=== PATIENT | male | born 1995 | race Caucasian/White ===

== ENCOUNTER 2023-12-19 18:21 | Observation (INO) ==
--- NOTE | 2023-12-19 18:43 | ED Triage Note ---
Date of Service December 19, 2023 Provider in Triage Author: Mesha Bray History of Present Illness This patient was briefly evaluated while in triage. An abbreviated physical exam was performed. This patient is a 28-year-old Male who presents to the ED for evaluation of abdominal pain. Patient states he has had RLQ pain and nausea which started today around 2 pm when he woke up. 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 Denies vomiting. No BM change, no urinary symptoms. Physical Exam GENERAL: Non-toxic and in no acute distress. HEENT: Pupils equal. No obvious scleral icterus. HEART: Regular rate and rhythm. LUNGS: Clear to auscultation. No accessory muscle use. ABDOMEN: Soft, tenderness to palpation in the right lower quadrant. NEURO: Alert and oriented. No obvious neurological deficits on quick neuro exam. Initial orders for labs and / or imaging were placed and patient was placed in the waiting area until a bed is available. Please see further documentation for the full ED course. MDM / Impression Impression Impression: Acute appendicitis Impression: Acute appendicitis Qualifiers: Acute appendicitis type: with localized peritonitis Appendicitis gangrene presence: unspecified whether gangrene present Appendicitis perforation presence: without perforation Appendicitis abscess presence: without abscess Qualified Code(s): K35.30 - Acute appendicitis with localized peritonitis, without perforation or gangrene
[2023-12-19 19:12] LABS: Basophils # (auto) 0.09 K/uL (0.00-0.20); Basophils % (auto) 0.7 %; Eosinophils # (auto) 0.56 K/uL (0.00-0.50); Eosinophils % (auto) 4.3 %; Hematocrit (blood only) 47.1 % (42.0-52.0); Hemoglobin 16.4 g/dl (14.0-18.0); Immature Granulocytes # (auto) 0.07 K/uL (0.01-0.20); Immature Granulocytes % (auto) 0.5 %; Lymphocytes # (auto) 2.11 K/uL (1.20-3.40); Lymphocytes % (auto) 16.2 %; Mean Corpuscular Hemoglobin 31.2 pg (25.0-34.0); Mean Corpuscular Hgb Conc 34.8 g/dL (32.0-36.0); Mean Corpuscular Volume 89.5 fL (80.0-100.0); Mean Platelet Volume 10.7 fL (9.4-12.4); Monocytes # (auto) 0.93 K/uL (0.11-0.59); Monocytes % (auto) 7.2 %; Neutrophils # (auto) 9.23 K/uL (1.40-6.50); Neutrophils % (auto) 71.1 %; Platelet Count 202 K/uL (130-400); RDW Coefficient of Variation 12.5 % (11.5-14.5); RDW Standard Deviation 40.9 fL (36.4-46.3); Red Blood Count 5.26 M/uL (4.70-6.10); White Blood Count 12.99 K/ul (4.8-10.8)
[2023-12-19 19:23] LABS: BUN Creatinine Ratio 17.8 (10-20); Bilirubin,Total 0.6 mg/dl (0.2-1.0); Calcium 9.9 mg/dl (8.6-10.3); Creatinine Clr Calc Pharmacy 116.7 ml/min; Est GFR (African American) 135.2 ml/min; Est GFR (Non-African American) 116.6 ml/min; Globulin 2.5 gm/dl (2.5-4.0); Potassium 4.2 mmol/L (3.5-5.1); Total Protein 7.5 gm/dl (6.0-8.3)
[2023-12-19] MEDS: OPTIRAY 320 500ml IV ONE (19:39)
[2023-12-19] MEDS: ONDANSETRON INJ 2 MG/ML 2 ML VIAL IV STA (19:49)
--- NOTE | 2023-12-19 20:15 | CT Scan Report ---
Exam(s): CT ABDOMEN + PELVIS With Contrast IV Amt: 81 ML OPTIRAY 320 EXAM: CT Abdomen and Pelvis With Intravenous Contrast CLINICAL HISTORY: Reason for exam: rlq pain. TECHNIQUE: Axial computed tomography images of the abdomen and pelvis with intravenous contrast. CTDI is 15.71 mGy and DLP is 719.49 mGy-cm. Automated exposure control was utilized for the study. A dose lowering technique was utilized adhering to the principles of ALARA. CONTRAST: Patient received 81 ML OPTIRAY 320 of IV contrast COMPARISON: No relevant prior studies available. FINDINGS: Lung bases: Unremarkable. No mass. No consolidation. ABDOMEN: Liver: Unremarkable. No mass. Gallbladder and bile ducts: Unremarkable. No calcified stones. No ductal dilation. Pancreas: Unremarkable. No mass. No ductal dilation. Spleen: Unremarkable. No splenomegaly. Adrenals: Unremarkable. No mass. Kidneys and ureters: Subcentimeter left renal cyst. No follow-up imaging required. No hydronephrosis. Stomach and bowel: Unremarkable. No obstruction. No mucosal thickening. PELVIS: Appendix: Dilated appendix with periappendiceal edema, characteristic of acute appendicitis. There is a small appendicolith. Bladder: Unremarkable. No mass. Reproductive: Unremarkable as visualized. ABDOMEN and PELVIS: Intraperitoneal space: Unremarkable. No free air. No significant fluid collection. Bones/joints: No acute fracture. No dislocation. Soft tissues: Unremarkable. Vasculature: Unremarkable. No abdominal aortic aneurysm. Lymph nodes: Unremarkable. No enlarged lymph nodes. IMPRESSION: Dilated appendix with periappendiceal edema, characteristic of acute appendicitis. There is a small appendicolith. No evidence of abscess or extraluminal air Communications: Call Doctor Appendicitis Electronically signed by: Kaylyn Zee MD 12/19/23 20:14 PM
--- NOTE | 2023-12-19 21:13 | Emergency Department Note ---
ED Provider Note History of Present Illness Chief Complaint: Abdominal Pain Stated Complaint: ABD PAIN,NAUSEA Time Seen by Provider: 12/19/23 18:57 This patient is a 28-year-old Male who presents to the ED for evaluation of abdominal pain. Patient states he has had RLQ pain and nausea which started today around 2 pm when he woke up. 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 Denies vomiting. No BM change, no urinary symptoms. Pain is worse when he is standing up straight or walking. He states it feels better when he is hunched over, in the position. 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 Beliefs That Will Affect Care: None Current Living Situation: Significant Other Feels Safe at Home: Yes Safety Concerns: Feels Safe At This Time Physical Exam Vital Signs Vital Signs - 24 hr 12/19/23 18:41 12/19/23 20:14 12/19/23 20:37 Temperature 36.5 C Temperature Source Temporal Artery Scan Pulse Rate 85 70 63 Pulse Rate [Apical] Pulse Rhythm Regular Pulse Rhythm [Apical] Pulse Strength [Apical] Respiratory Rate 20 14 Respiratory Effort / Characteristics Non-Labored Spontaneous Respiratory Depth Normal Respiratory Pattern Blood Pressure 167/101 H 138/74 Blood Pressure [Right Arm] Blood Pressure Mean 123 95 Blood Pressure Mean [Right Arm] Blood Pressure Position [Right Arm] Pulse Oximetry 97 98 Oxygen Delivery Method Room Air Room Air Sepsis Recent Fever Within 48 Hours No Sepsis New/Unexplained Change in Mental Status No Sepsis Action Taken by Nursing No Action Required 12/19/23 21:07 12/19/23 21:18 Temperature 36.7 C 36.8 C Temperature Source Oral Oral Pulse Rate Pulse Rate [Apical] 75 72 Pulse Rhythm Pulse Rhythm [Apical] Regular Pulse Strength [Apical] Normal Respiratory Rate 14 Respiratory Effort / Characteristics Non-Labored Spontaneous Respiratory Depth Normal Respiratory Pattern Regular Blood Pressure Blood Pressure [Right Arm] 129/71 106/75 Blood Pressure Mean Blood Pressure Mean [Right Arm] 90 85 Blood Pressure Position [Right Arm] Semi-fowlers Pulse Oximetry 98 98 Oxygen Delivery Method Room Air Room Air Sepsis Recent Fever Within 48 Hours Sepsis New/Unexplained Change in Mental Status Sepsis Action Taken by Nursing VITALS: Vitals are noted on the nurse's note and reviewed by myself. GENERAL: This is a 28-year-old male, in no acute distress, well-developed well- nourished. SKIN: The skin was without rashes. EYES: Pupils equal round and reactive to light and accommodation. No scleral icterus. MOUTH: Mucous membranes moist. HEART: Regular rate and rhythm without murmurs gallops or rubs. LUNGS: Clear to auscultation bilaterally without wheezes, rales or rhonchi. ABDOMEN: Positive bowel sounds x 4. Soft, tenderness in the right lower quadrant with guarding. NEURO: Patient was alert and oriented to person place and time. Course Administered Medications Discontinued Medications Bupivacaine HCl (Bupivacaine 0.5 % 5 Mg/1 Ml Mpf 30ml Vial) Confirm Administered Dose 30 ml .ROUTE .STK-MED ONE Stop: 12/19/23 21:17 Last Admin: 12/19/23 23:00 Dose: 30 ml Documented By: AKASH Epinephrine HCl (Epinephrine Inj 1 Mg/Ml Amp) Confirm Administered Dose 1 mg .ROUTE .STK-MED ONE Stop: 12/19/23 21:17 Last Admin: 12/19/23 23:00 Dose: 1 mg Documented By: AKASH Cefoxitin Sodium 2,000 mg/ (Dextrose) 50 mls @ 100 mls/hr IV ONCE ONE; Protocol Stop: 12/19/23 23:30 Last Infusion: 12/20/23 00:33 Dose: Infused Documented By: Admin: 12/19/23 22:20 Dose: 100 mls/hr Documented By: [id number] Ioversol (Optiray 320 500ml) 81 ml IV ONCE ONE Stop: 12/19/23 19:40 Last Admin: 12/19/23 19:39 Dose: 81 ml Documented By: ARNOLD Ondansetron HCl (Ondansetron Inj 2 Mg/Ml 2 Ml Vial) 4 mg IV NOW STA Stop: 12/19/23 18:44 Last Admin: 12/19/23 19:49 Dose: 4 mg Documented By: ROHAN Medical Decision Making Differential Diagnosis Appendicitis, testicular torsion, infections, diverticulitis, UTI, obstruction, mesenteric ischemia, aortic pathology, inflammatory bowel disease, renal colic, PUD, pancreatitis, biliary pathology, hernia, volvulus, constipation, as well as other pathologies. Laboratory Data Attestation: I reviewed the patient's lab results. 12/19/23 18:49 12/19/23 18:49 Lab Results 12/19/23 12/19/23 Range/Units 18:49 21:00 WBC 12.99 H (4.8-10.8) K/ul RBC 5.26 (4.70-6.10) M/uL Hgb 16.4 (14.0-18.0) g/dl Hct 47.1 (42.0-52.0) % MCV 89.5 (80.0-100.0) fL MCH 31.2 (25.0-34.0) pg MCHC 34.8 (32.0-36.0) g/dL RDW Std Deviation 40.9 (36.4-46.3) fL RDW Coeff of Sebastian 12.5 (11.5-14.5) % Plt Count 202 (130-400) K/uL MPV 10.7 (9.4-12.4) fL Immature Gran % (Auto) 0.5 % Neut % (Auto) 71.1 % Lymph % (Auto) 16.2 % King % (Auto) 7.2 % Eos % (Auto) 4.3 % Baso % (Auto) 0.7 % Neut # (Auto) 9.23 H (1.40-6.50) K/uL Lymph # (Auto) 2.11 (1.20-3.40) K/uL King # (Auto) 0.93 H (0.11-0.59) K/uL Eos # (Auto) 0.56 H (0.00-0.50) K/uL Baso # (Auto) 0.09 (0.00-0.20) K/uL Immature Gran # (Auto) 0.07 (0.01-0.20) K/uL Sodium 138 (136-145) mmol/L Potassium 4.2 (3.5-5.1) mmol/L Chloride 104 (98-107) mmol/L Carbon Dioxide 27 (21-32) mmol/L Anion Gap 7 (3-11) BUN 16 (6-23) mg/dl Creatinine 0.90 (0.6-1.4) mg/dl Est Cr Clr Drug Dosing 116.7 ml/min Est GFR ( Amer) 135.2 ml/min Est GFR (Non-Af Amer) 116.6 ml/min BUN/Creatinine Ratio 17.8 (10-20) Glucose 93 (70-99(Fasting)) mg/dl Calcium 9.9 (8.6-10.3) mg/dl Total Bilirubin 0.6 (0.2-1.0) mg/dl AST 21 (13-39) U/L ALT 24 (7-52) U/L Alkaline Phosphatase 86 (34-104) U/L Total Protein 7.5 (6.0-8.3) gm/dl Albumin 5.0 (3.4-5.0) gm/dl Globulin 2.5 (2.5-4.0) gm/dl Albumin/Globulin Ratio 2.0 (0.9-2) Lipase 16 (11-82) U/L Urine Color Yellow Urine Appearance Clear (Clear) Urine pH 7.0 (4.5-7.5) Ur Specific [place] > 1.045 H (1.000-1.030) Urine Protein Negative (Negative) Urine Glucose (UA) Negative (Negative) Urine Ketones Negative (Negative) Urine Blood Negative (Negative) Urine Nitrite Negative (Negative) Urine Bilirubin Negative (Negative) Urine Urobilinogen Negative (Negative) Ur Leukocyte Esterase Negative (Negative) Imaging Data Attestation: I personally reviewed and interpreted this imaging study as follows: Radiologist's Impression: Abdomen/Pelvis CT 12/19/23 18:43 CR Exam(s): CT ABDOMEN + PELVIS With Contrast IV Amt: 81 ML OPTIRAY 320 EXAM: CT Abdomen and Pelvis With Intravenous Contrast CLINICAL HISTORY: Reason for exam: rlq pain. TECHNIQUE: Axial computed tomography images of the abdomen and pelvis with intravenous contrast. CTDI is 15.71 mGy and DLP is 719.49 mGy-cm. Automated exposure control was utilized for the study. A dose lowering technique was utilized adhering to the principles of ALARA. CONTRAST: Patient received 81 ML OPTIRAY 320 of IV contrast COMPARISON: No relevant prior studies available. FINDINGS: Lung bases: Unremarkable. No mass. No consolidation. ABDOMEN: Liver: Unremarkable. No mass. Gallbladder and bile ducts: Unremarkable. No calcified stones. No ductal dilation. Pancreas: Unremarkable. No mass. No ductal dilation. Spleen: Unremarkable. No splenomegaly. Adrenals: Unremarkable. No mass. Kidneys and ureters: Subcentimeter left renal cyst. No follow-up imaging required. No hydronephrosis. Stomach and bowel: Unremarkable. No obstruction. No mucosal thickening. PELVIS: Appendix: Dilated appendix with periappendiceal edema, characteristic of acute appendicitis. There is a small appendicolith. Bladder: Unremarkable. No mass. Reproductive: Unremarkable as visualized. ABDOMEN and PELVIS: Intraperitoneal space: Unremarkable. No free air. No significant fluid collection. Bones/joints: No acute fracture. No dislocation. Soft tissues: Unremarkable. Vasculature: Unremarkable. No abdominal aortic aneurysm. Lymph nodes: Unremarkable. No enlarged lymph nodes. IMPRESSION: Dilated appendix with periappendiceal edema, characteristic of acute appendicitis. There is a small appendicolith. No evidence of abscess or extraluminal air Communications: Call Doctor Appendicitis Electronically signed by: Kaylyn Zee MD 12/19/23 20:14 PM [facility] Narrative This patient is a 28-year-old male who presents to the emergency department for evaluation of right lower quadrant abdominal pain. Labs showed a leukocytosis of 12,000. Labs otherwise unremarkable. CT of the abdomen/pelvis performed and reviewed by radiology which did show appendicitis with no perforation or abscess. General surgery, Dr. Frye was consulted and arrived to evaluate the patient. Patient will be taken for operative management. Patient informed of all findings and agreed with the plan of care. Impression Acute appendicitis Discharge Plan Visit Data Chief Complaint: Abdominal Pain Stated Complaint: ABD PAIN,NAUSEA ED Provider: Brisa Nolasco ED Midlevel Provider: Mesha Bray Discharge Problem: Acute appendicitis Patient Disposition: Admitted As Inpatient Discharge Instructions Interventions: ED Discharge Assessment Last Done: 12/19/23 21:42 Discharge Problem: Acute appendicitis Qualifiers: Acute appendicitis type: with localized peritonitis Appendicitis gangrene presence: unspecified whether gangrene present Appendicitis perforation presence: without perforation Appendicitis abscess presence: without abscess Q ualified Code(s): K35.30 - Acute appendicitis with localized peritonitis, without perforation or gangrene
--- NOTE | 2023-12-19 21:24 | History & Physical Report ---
Date of Service December 19, 2023 Assessment & Plan (1) Acute appendicitis: Plan: 28-year-old gentleman with acute appendicitis. I discussed risks and benefits of a laparoscopic appendectomy with him. All his questions were answered, and he is agreeable to proceed. We will take him to the operating room at the earliest convenience. Consent has been obtained. History of Present Illness Primary Care Provider: Ayanna Wadsworth MD Gentleman presents with a 6-hour history of right lower quadrant abdominal pain, worsening in nature. He has had nausea associated with the pain. He denies vomiting. He had a normal bowel movement this morning. He is having difficulty and pain with urination. He denies fevers or chills. He has never had abdominal surgery in the past. Allergies Allergy/AdvReac Type Severity Reaction Status Date / Time No Known Allergies AdvReac Unknown Verified 12/19/23 21:11 Home Medications Medication Instructions Recorded Confirmed Type No Known Home Medications 12/19/23 12/19/23 History Past Med/Surg History Social History Smoking Status: Never smoker Feels Safe at Home: Yes Review of Systems Review of Systems: All systems reviewed & are unremarkable except as noted in HPI & below Physical Exam Constitutional: WD/WN, vitals as above Eyes: PERRL, conjunctivae normal, anicteric sclerae Neck: trachea midline, no thyromegaly Respiratory: normal respiratory effort; no respiratory distress and no labored breathing Cardiovascular: Rate/Rhythm: regular rate and regular rhythm Gastrointestinal (Abdomen): Inspection/Auscultation: abdomen normal to inspection; abdomen not distended Percussion/Palpation: + abdomen tender ( RLQ) and abdomen soft; no guarding and abdomen not rigid positive Rovsing's sign Skin: no rashes, warm and dry Psychiatric: A+Ox3, euthymic affect Results & Data Results & Data Vital Signs (Past 12 Hours) Vital Signs Temp Pulse Resp BP Pulse Ox O2 Del Method 12/19/23 20:37 63 12/19/23 20:14 70 14 138/74 98 Room Air 12/19/23 18:41 36.5 C 85 20 167/101 H 97 Room Air Laboratory Results 12/19/23 12/19/23 Range/Units 21:00 18:49 WBC 12.99 H (4.8-10.8) K/ul RBC 5.26 (4.70-6.10) M/uL Hgb 16.4 (14.0-18.0) g/dl Hct 47.1 (42.0-52.0) % MCV 89.5 (80.0-100.0) fL MCH 31.2 (25.0-34.0) pg MCHC 34.8 (32.0-36.0) g/dL RDW Std Deviation 40.9 (36.4-46.3) fL RDW Coeff of Sebastian 12.5 (11.5-14.5) % Plt Count 202 (130-400) K/uL MPV 10.7 (9.4-12.4) fL Immature Gran % (Auto) 0.5 % Neut % (Auto) 71.1 % Lymph % (Auto) 16.2 % [place] % (Auto) 7.2 % Eos % (Auto) 4.3 % Baso % (Auto) 0.7 % Neut # (Auto) 9.23 H (1.40-6.50) K/uL Lymph # (Auto) 2.11 (1.20-3.40) K/uL Fisher # (Auto) 0.93 H (0.11-0.59) K/uL Eos # (Auto) 0.56 H (0.00-0.50) K/uL Baso # (Auto) 0.09 (0.00-0.20) K/uL Immature Gran # (Auto) 0.07 (0.01-0.20) K/uL Sodium 138 (136-145) mmol/L Potassium 4.2 (3.5-5.1) mmol/L Chloride 104 (98-107) mmol/L Carbon Dioxide 27 (21-32) mmol/L Anion Gap 7 (3-11) BUN 16 (6-23) mg/dl Creatinine 0.90 (0.6-1.4) mg/dl Est Cr Clr Drug Dosing 116.7 ml/min Est GFR ( Amer) 135.2 ml/min Est GFR (Non-Af Amer) 116.6 ml/min BUN/Creatinine Ratio 17.8 (10-20) Glucose 93 (70-99(Fasting)) mg/dl Calcium 9.9 (8.6-10.3) mg/dl Total Bilirubin 0.6 (0.2-1.0) mg/dl AST 21 (13-39) U/L ALT 24 (7-52) U/L Alkaline Phosphatase 86 (34-104) U/L Total Protein 7.5 (6.0-8.3) gm/dl Albumin 5.0 (3.4-5.0) gm/dl Globulin 2.5 (2.5-4.0) gm/dl Albumin/Globulin Ratio 2.0 (0.9-2) Lipase 16 (11-82) U/L Urine Color Pending Urine Appearance Pending Urine pH Pending Ur Specific [place] Pending Urine Protein Pending Urine Glucose (UA) Pending Urine Ketones Pending Urine Blood Pending Urine Nitrite Pending Urine Bilirubin Pending Urine Urobilinogen Pending Ur Leukocyte Esterase Pending Diagnostic Findings ADDENDUM: 12/19/23 20:17 Call Doctor Regarding Appendicitis, called LINDA Zimmer on 12/18 20:17 (-05:00) Electronically signed by: Kaylyn Zee MD Electronically signed by: Kaylyn Zee MD 12/19/23 20:14 PM ADDENDUM END Exam(s): CT ABDOMEN + PELVIS With Contrast IV Amt: 81 ML OPTIRAY 320 EXAM: CT Abdomen and Pelvis With Intravenous Contrast CLINICAL HISTORY: Reason for exam: rlq pain. TECHNIQUE: Axial computed tomography images of the abdomen and pelvis with intravenous contrast. CTDI is 15.71 mGy and DLP is 719.49 mGy-cm. Automated exposure control was utilized for the study. A dose lowering technique was utilized adhering to the principles of ALARA. CONTRAST: Patient received 81 ML OPTIRAY 320 of IV contrast COMPARISON: No relevant prior studies available. FINDINGS: Lung bases: Unremarkable. No mass. No consolidation. ABDOMEN: Liver: Unremarkable. No mass. Gallbladder and bile ducts: Unremarkable. No calcified stones. No ductal dilation. Pancreas: Unremarkable. No mass. No ductal dilation. Spleen: Unremarkable. No splenomegaly. Adrenals: Unremarkable. No mass. Kidneys and ureters: Subcentimeter left renal cyst. No follow-up imaging required. No hydronephrosis. Stomach and bowel: Unremarkable. No obstruction. No mucosal thickening. PELVIS: Appendix: Dilated appendix with periappendiceal edema, characteristic of acute appendicitis. There is a small appendicolith. Bladder: Unremarkable. No mass. Reproductive: Unremarkable as visualized. ABDOMEN and PELVIS: Intraperitoneal space: Unremarkable. No free air. No significant fluid collection. Bones/joints: No acute fracture. No dislocation. Soft tissues: Unremarkable. Vasculature: Unremarkable. No abdominal aortic aneurysm. Lymph nodes: Unremarkable. No enlarged lymph nodes. IMPRESSION: Dilated appendix with periappendiceal edema, characteristic of acute appendicitis. There is a small appendicolith. No evidence of abscess or extraluminal air (1) Acute appendicitis Acute appendicitis type: with localized peritonitis Appendicitis abscess pr esence: without abscess Appendicitis gangrene presence: unspecified whether gangrene present Appendicitis perforation presence: without perforation Qualified Code(s): K35.30 - Acute appendicitis with localized peritonitis, wit hout perforation or gangrene
[2023-12-19 21:45] LABS: Appearance Urine Clear (Clear); Bilirubin Urine Negative (Negative); Blood Urine Negative (Negative); Color Urine Yellow; Glucose Urine UA Negative (Negative); Ketones Urine Negative (Negative); Leukocyte Esterase Urine Negative (Negative); Nitrite Urine Negative (Negative); Protein Urine Negative (Negative); Specific Gravity Urine > 1.045 (1.000-1.030); Urobilinogen Urine Negative (Negative)
[2023-12-19] MEDS ORDERED: fentaNYL citrate PF 100 MCG/2 ML VIAL ONE ×2 (21:53→22:27)
[2023-12-19] MEDS ORDERED: ROCURONIUM BROMIDE 10 MG/ML 5 ML VIAL IV ONE (21:53)
[2023-12-19] MEDS ORDERED: PROPOFOL IV EMULSION 10 MG/ML 20 ML VIAL IV ONE (21:53)
[2023-12-19] MEDS ORDERED: HYDROmorphone INJ 2 MG/ML SYR/VIAL IV PRN (22:05)
[2023-12-19] MEDS ORDERED: ATROPINE SULFATE 0.1 MG/ML 10ML SYR IV PRN (22:05)
[2023-12-19] MEDS ORDERED: ePHEDrine sulfate 50 MG/ML AMP IV PRN (22:05)
[2023-12-19] MEDS ORDERED: fentaNYL citrate PF 100 MCG/2 ML VIAL IV PRN (22:05)
[2023-12-19] MEDS ORDERED: ONDANSETRON INJ 2 MG/ML 2 ML VIAL IV PRN (22:05)
[2023-12-19] MEDS ORDERED: DROPERIDOL 5 MG/2 ML VIAL IV PRN (22:05)
--- NOTE | 2023-12-19 22:05 | Anesthesiology Consultation ---
Date of Service December 19, 2023 Assessment & Plan ASA ASA1E Proposed Anesthesia Anesthesia Type: General Risk / Benefits Reviewed With: PT / POA / Parent / Guardian, Accepts Plan and Informed Consent Obtained History Surgery Operation Date: 12/19/23 21:15 Proposed Procedures p Laparoscopic Appendectomy - Db Frye MD Height/Weight Height: 5 ft 5 in Weight: 75.1 kg Allergies Allergy/AdvReac Type Severity Reaction Status Date / Time No Known Allergies AdvReac Unknown Verified 12/19/23 21:11 Medications Home Medications Medication Instructions Recorded Confirmed Last Taken No Known Home Medications 12/19/23 12/19/23 Unknown NPO Date Last Intake of Fluids: 12/19/23 Time Last Intake of Fluids: 07:00 Date Last Intake of Solids: 12/19/23 Time Last Intake of Solids: 07:00 Exercise / Class Metabolic Activity II 4-5 Yardwork/Stairs/Walk up hill Past Anesthesia History No Hx of Anesthesia Complications and No Family Hx of Anesthesia Complications History of PONV No Hx of PONV and No Hx of Motion Sickness Social History Smoking Status: Never smoker Review of Systems denies fever/cough/ colds/ chest pain/ SOB/ SMITA denies SMITA Physical Exam Vital Signs Last Vital Signs Temp 36.8 C 12/19/23 21:18 Pulse 72 12/19/23 21:18 Resp 14 12/19/23 21:18 BP 106/75 12/19/23 21:18 Pulse Ox 98 12/19/23 21:18 O2 Del Method Room Air 12/19/23 21:18 ENMT Mouth: no TMJ abnormality and no dentition abnormality Thyromental Distance: > or= 3.5 Finger Breadths Mallampati Class: I Neck neck extension not limited Respiratory normal respiratory effort; no respiratory distress Auscultation: lungs clear to auscultation bilaterally Cardiovascular Rate/Rhythm: regular rate and regular rhythm Neurologic moves all extremities Psychiatric Orientation: alert and oriented x 3 Testing Laboratory Results 12/19/23 18:49 12/19/23 18:49 Urine Color Yellow 12/19/23 21:00 Urine Appearance Clear (Clear) 12/19/23 21:00 Urine pH 7.0 (4.5-7.5) 12/19/23 21:00 Ur Specific [place] > 1.045 (1.000-1.030) H 03/05/24 21:00 Urine Protein Negative (Negative) 12/19/23 21:00 Urine Glucose (UA) Negative (Negative) 12/19/23 21:00 Urine Ketones Negative (Negative) 12/19/23 21:00 Urine Nitrite Negative (Negative) 12/19/23 21:00 Ur Leukocyte Esterase Negative (Negative) 12/19/23 21:00
[2023-12-19] MEDS: cefOXitin 2,000 MG in DEXTROSE 5 % MINI-B 50 ML IV ONE (22:20)
[2023-12-19] MEDS ORDERED: DEXAMETHASONE SOD INJ 4 MG/ML VIAL ONE (22:27)
[2023-12-19] MEDS ORDERED: ONDANSETRON INJ 2 MG/ML 2 ML VIAL ONE (22:27)
[2023-12-19] MEDS ORDERED: KETOROLAC 30 MG/ML VIAL ONE (22:27)
[2023-12-19] MEDS ORDERED: SUGAMMADEX SODIUM 200 MG/2 ML VIAL IV ONE (22:28)
--- NOTE | 2023-12-19 22:57 | Post Operative Brief Note ---
Immediate Post Op Note v1 Date of Surgery December 19, 2023 Pre & Post Diagnosis Operation Date: 12/19/23 21:15 Pre-Op Diagnosis: Acute appendicitis Post-Op Diagnosis: Acute appendicitis I identified the patient and participated in the time-out.: Yes Procedure Operation Date: 12/19/23 21:15 Actual Procedures p Laparoscopic Appendectomy(Not Applicable) - Db Frye MD Surgeon Db Frye MD Dry Talc Racker None Estimated Blood Loss 5 Findings Consistent with Post-Op Diagnosis
--- NOTE | 2023-12-19 22:58 | Operative Report ---
Post Operative Report Pre & Post Diagnosis Operation Date: 12/19/23 21:15 Pre-Op Diagnosis: Acute appendicitis Post-Op Diagnosis: Acute appendicitis I identified the patient and participated in the time-out.: Yes Procedure Operation Date: 12/19/23 21:15 Actual Procedures p Laparoscopic Appendectomy(Not Applicable) - Db Frye MD Surgeon Db Frye MD Driver Recruiter None Estimated Blood Loss 5 Findings Consistent with Post-Op Diagnosis acute appendicitis Specimens appendix Drains none Anesthesia Type General Complications none Description of Procedure the patient was taken to the operating room, and placed supine on the operating table. A timeout was performed, perioperative antibiotics were administered, SCD boots were placed. After adequate anesthesia and analgesia was obtained, the abdomen was prepped and draped in the normal sterile fashion. A 1 cm incision was made in the supraumbilical region and carried down to the level of the fascia. A trach hook was used to grasp the fascia and elevated and a varies needle was used to enter the abdominal cavity. The abdomen was insufflated to a pressure of 15 mmHg, and a 5 mm trocar was placed in this loca tion. A 5 mm 30 degree laparoscope was placed into the abdominal cavity, and the abdomen was surveyed. The patient was placed in Trendelenburg and slightly to the left. One 5 mm trocar was placed in the right upper quadrant, and one 12 mm trocar was placed in the left lower quadrant under direct visualization. The right colon was identified and traced down to the cecum. The appendix was identified and elevated anteriorly and medially. A window was created at the base of the appendix with a [place] dissector. The Endo NORMAN stapler was used to transect the appendix at its base through non inflamed tissue, and subsequently the mesoappendix. The appendix was placed in an Endo Catch bag, and removed via the left lower quadrant port site. Attention was turned to hemostasis, which was excellent. The abdomen was copiously irrigated and suctioned free, and again hemostasis was found to be excellent. All trochars removed under direct visualization. The abdomen was desufflated. The fascia in the 12 mm port site was closed with a 0 Vicryl suture. The skin was closed with a running 4-0 Monocryl subcuticular stitch. Dermabond was applied. The patient tolerated the procedure without complication, and was transferred in stable condition to the PACU. All instrument, needle, and sponge counts were correct at the end of the case. I attest to the content of the Intraoperative Record and any orders documented therein. Any exceptions are noted below.
[2023-12-19] MEDS: BUPIVACAINE 0.5 % 5 MG/1 ML MPF 30ML VIAL ONE (23:00)
[2023-12-19] MEDS: EPINEPHrine INJ 1 MG/ML AMP ONE (23:00)
--- NOTE | 2023-12-19 23:20 | Anesthesiology Progress Note ---
Date of Service December 19, 2023 Anesthesia Post Procedure Vital Signs Vital Signs: Temp Pulse Pulse Resp BP BP Pulse Ox 12/19/23 23:13 119/70 12/19/23 23:13 72 21 98 12/19/23 23:12 78 98 12/19/23 21:18 36.8 C 72 14 106/75 98 12/19/23 21:07 36.7 C 75 129/71 98 12/19/23 20:37 63 12/19/23 20:14 70 14 138/74 98 12/19/23 18:41 36.5 C 85 20 167/101 H 97 O2 Del Method 12/19/23 23:13 12/19/23 23:13 12/19/23 23:12 Room Air 12/19/23 21:18 Room Air 12/19/23 21:07 Room Air 12/19/23 20:37 12/19/23 20:14 Room Air 12/19/23 18:41 Room Air Pain Intensity Right Lower Abdomen: Pain Intensity: 0 Transfer of Care Handoff Completed per policy Notes Mental Status: alert / awake / arousable and participated in evaluation Patient Amnestic to Procedure: Yes Nausea / Vomiting: adequately controlled Pain: adequately controlled Airway Patency, RR, SpO2: stable & adequate BP & HR: stable & adequate Hydration State: stable & adequate Anesthetic Complications: no major complications apparent and Pt Satisfied with anesthetic care
[2023-12-20] MEDS ORDERED: MoRPHine SULFATE 2 MG/ML CARP IV PRN (00:24)
[2023-12-20] MEDS ORDERED: oxyCODONE/ACETAMINOPHEN 5mg/325mg TAB PO PRN (00:24)
[2023-12-20] MEDS ORDERED: KETOROLAC 30 MG/ML VIAL IV PRN (00:24)
[2023-12-20] MEDS ORDERED: PROMETHAZINE HCL 12.5 MG in SODIUM CHLORIDE 0.9% 50 ML IV PRN (00:24)
[2023-12-20] MEDS ORDERED: diphenhydrAMINE Capsule 25 MG CAP PO PRN (00:24)
[2023-12-20] MEDS ORDERED: ONDANSETRON INJ 2 MG/ML 2 ML VIAL IV PRN (00:24)
[2023-12-20] MEDS: ENOXAPARIN INJ 40 MG/0.4 ML SYR SQ SCH (07:39)
[2023-12-20] MEDS ORDERED: ACETAMINOPHEN 325 MG TAB PO PRN (09:28)
--- NOTE | 2023-12-20 09:30 | Discharge Summary ---
Date of Service December 20, 2023 Admission HPI Per Admitting Provider Gentleman presents with a 6-hour history of right lower quadrant abdominal pain, worsening in nature. He has had nausea associated with the pain. He denies vomiting. He had a normal bowel movement this morning. He is having difficulty and pain with urination. He denies fevers or chills. He has never had abdominal surgery in the past. Principal Diagnosis acute appendicitis Discharge Exam Constitutional WD/WN, vitals as above cooperative and comfortable; no acute distress and not ill appearing Respiratory normal respiratory effort; no respiratory distress Gastrointestinal (Abdomen) Inspection/Auscultation: abdomen normal to inspection and + abdominal surgical incision (clean/dry/intact, dermabond in place); abdomen not distended Percussion/Palpation: + abdomen tender (minimal at incision sites) and abdomen soft; no guarding and abdomen not rigid Skin no rashes, warm and dry Psychiatric A+Ox3, euthymic affect Discharge Data Allergies Allergy/AdvReac Type Severity Reaction Status Date / Time No Known Allergies AdvReac Unknown Verified 12/19/23 21:11 Procedures Performed Operation Date: 12/19/23 21:15 Actual Procedures p Laparoscopic Appendectomy(Not Applicable) - Db Frye MD Ordered Studies 12/19/23 18:43 CT abd pelvis IV con only Stat Hospital Course (1) Acute appendicitis: Patient taken to operating room for laparoscopic appendectomy by Dr. Frye on 12/19/2023. Tolerated procedure without difficulty and transferred to medical/surgical floor postoperatively. Diet advanced as tolerated, pain management as needed. Patient was tolerating diet and pain controlled and discharged on POD # 1 in stable condition. Total Time Total Time Spent Total Time Spent (In Minutes): 20 minutes Total Time Includes: Examination of the Patient, Discharge Planning and Medication Reconciliation Discharge Plan Discharge Items Patient Disposition: Home - Self-Care Reason For Visit: ACUTE APPENDICITIS Discharge Diagnosis: Acute appendicitis Activity: Per Instructions section Non-emergency contact: Primary Care Provider and Surgeon Call non-emergency contact if: you have any medication questions, your pain is not controlled, your pain is worsening, your pain is concerning for you, you have a fever, your temperature is above 101, your wound has increased redness, your wound has increased drainage and your wound pain has increased Follow-up/Referrals: Ayanna Wadsworth MD [Outside Practitioners] - Jo Ann Amado PA-C [Physician Ap Operator] - 12/28/23 (1 week, next ) Diet: Regular Addtl Attending Provider Instructions: Post-Surgical ~Discharge Instructions Activity Recommendations: - lifting limitation: (20 pounds for 2 weeks), - exercise/sex/sports limit: (nonstrenuous for 2 weeks), - driving or machine use limit: (none for 1 week or until pain free and no longer taking narcotic pain medication), - Shower/bathe limit: (may shower beginning tonight, no submerging underwater for 2 weeks) Diet: - Resume previous diet SPECIAL CARE INSTRUCTIONS: - May shower this evening. Let water run over area and pat dry. - Leave surgical glue on incisions, this will fall off on its own. - Call the surgeon's office with any questions or concerns - - (ex. temperature higher than 101 degrees F, excessive bleeding or pain). MEDICATIONS: - Resume previous medications unless instructed otherwise by your surgeon. - May alternate extra strength Tylenol and Ibuprofen as needed for pain 650 mg Tylenol every 6 hours as needed - Ibuprofen 600 mg every 6 hours as needed take with food - Percocet 1 every 6 hours, as needed for severe pain - Recommend daily stool softener (Colace) while taking narcotic pain medication to prevent constipation. Drink plenty of water daily. FOLLOW UP VISIT: - If not already scheduled, please call the office to schedule a 1-2 week follow-up appointment. Office number Pending Studies at Discharge: Yes (appendix pathology, will be reviewed at postop visit) Stand-Alone Forms: My [facility] [place], Work/School Release, Smoking Cessation Medications and DC Order Prescriptions: New oxycodone-acetaminophen 5-325 mg tablet 1 tab PO Q6H PRN (Reason: pain (scale score 7-10)) Qty: 5 0RF Discharge Orders: Discharge Order (Routine); Ordered 12/20/23 Ordered By: Jo Ann Amado Admission Data Admit Date/Time: 12/19/23 23:01 Attending Provider: Db Frye Admit Provider: Db Frye Primary Care Provider: PCP,NO Other Interventions: Discharge Summary Assessment (RN) Last Done: 12/20/23 09:41
== END 2023-12-20 10:45 | disposition home or self-care (01) ==
LOC: ED 18:21 → 3E 21:42 → OR 21:42
DX: K35.30 Acute appendicitis with localized peritonitis, without perforation or gangrene